=== PATIENT | female | born 1985 | race Caucasian/White ===

== ENCOUNTER → 2024-10-26 | Outpatient (REF) | payer OTHER | LOC: M LAB REF 09:59 | PROVIDERS: ATTEND Internal Medicine Gastroenterology | DX: R19.7 Diarrhea, unspecified (principal) ==

== ENCOUNTER 2024-11-05 09:06 | Day surgery (SDC) | payer OTHER ==
[~2024-11-05] VITALS: Ht 167.6 cm; Wt 80.2 kg
[2024-11-05 10:48] VITALS: TEMP 97.6
[2024-11-05 11:09] VITALS: BP 112/56; O2SAT 100
== END 2024-11-05 11:24 | disposition home or self-care (01) ==
LOC: M OPP 09:06 → EDUNIT# 14:00
PROVIDERS: ATTEND Internal Medicine Gastroenterology
DX: K50.80 Crohn's disease of both small and large intestine without complications (principal); K64.0 First degree hemorrhoids; R19.7 Diarrhea, unspecified